=== PATIENT | male | born 1955 | race Caucasian/White ===

== ENCOUNTER 2017-01-10 13:37 | Emergency (ER) | payer OTHER ==
[~2017-01-10] VITALS: Ht 185.4 cm; Wt 100.0 kg
[2017-01-10] MEDS ORDERED: METF500T4 PO (13:49)
[2017-01-10] MEDS ORDERED: GABA-531 PO (13:49)
[2017-01-10 13:51] LABS: GLUCOSE,POINT OF CARE 413 MG/DL (70-110)
[2017-01-10 15:19] LABS: BASOPHILS % (AUTO) 0.2 % (0.0-2.0); EOSINOPHILS % (AUTO) 1.2 % (1.0-6.0); HEMATOCRIT 35.9 % (41-53); HEMOGLOBIN 11.2 g/dL (13.5-17.5); LYMPHOCYTES % (AUTO) 18.5 % (22.0-44.0); MEAN CORPUSCULAR HEMOGLOBIN 25.5 pg (26.0-34.0); MEAN CORPUSCULAR HGB CONC 31.1 G/dL (31.0-37.0); MEAN CORPUSCULAR VOLUME 82 fL (80-100); MONOCYTES # (AUTO) 0.5 K/uL (0.1-1.0); MONOCYTES % (AUTO) 4.3 % (2.0-9.0); NEUTROPHILS # (AUTO) 8.3 K/uL (1.8-7.7); NEUTROPHILS % (AUTO) 75.8 % (40.0-70.0); PLATELET COUNT (AUTO) 309 K/uL (150-450); RED BLOOD CELL COUNT(AUTO) 4.38 MIL/uL (4.50-5.90); RED CELL DISTRIBUTION WIDTH 18.6 % (11.5-14.5)
[2017-01-10 15:33] LABS: ANION GAP 7 mmol/L (8-16); CALCIUM, TOTAL 8.6 mg/dL (8.8-10.5); CARBON DIOXIDE 30 mmol/L (22-29); CHLORIDE 99 mmol/L (98-107); CREATININE 0.75 mg/dL (0.60-1.30); GLOMERULAR FILTR. RATE CALC > 60 mL/min (>60); POTASSIUM 4.3 mmol/L (3.5-5.1); SODIUM SERUM 136 mmol/L (136-145); UREA NITROGEN, BLOOD 17 mg/dL (7-18)
[2017-01-10 15:39] LABS: RBC MORPHOLOGY COMMENT ABNORMAL RBC MORPH
[2017-01-10 15:42] LABS: GLUCOSE,POINT OF CARE 89 MG/DL (70-110)
[2017-01-10] MEDS ORDERED: INSULIN REGULAR, HUMAN 100 UNITS/ML SQ ONE (15:45)
[2017-01-10 16:29] VITALS: BP 132/87
[2017-01-10 16:32] LABS: GLUCOSE,POINT OF CARE 140 MG/DL (70-110)
== END 2017-01-10 16:30 | disposition home or self-care (01) ==
LOC: EMS 13:40
DX: Z76.0 Encounter for issue of repeat prescription (principal); R73.9 Hyperglycemia, unspecified; I10 Essential (primary) hypertension
CPT/HCPCS: 36415; 80048; 82962; 85025; 99284; J1815